=== PATIENT | male | born 1965 | race Asian ===

== ENCOUNTER 2024-08-27 08:20 | Outpatient (CLI) | payer BC, OTHER, SELFPAY | END 2024-08-27 08:21 | disposition home or self-care (01) | LOC: CSHSLEEP 08:20 | PROVIDERS: ATTEND Family Medicine | DX: G47.9 Sleep disorder, unspecified (principal); R53.83 Other fatigue; R06.83 Snoring; G47.33 Obstructive sleep apnea (adult) (pediatric) | CPT/HCPCS: 95800 ==